=== PATIENT | female | born 1995 | race Caucasian/White ===

== ENCOUNTER 2022-01-04 22:46 | Emergency (ER) | payer SELFPAY ==
[~2022-01-04] VITALS: Ht 165.1 cm; Wt 65.8 kg
[2022-01-04 22:57] VITALS: BP 128/82
[2022-01-04] MEDS ORDERED: IBUPROFEN 600 MG TAB PO ONE (23:00)
[2022-01-04] MEDS ORDERED: NAPR-54 PO (23:49)
[2022-01-04 23:56] VITALS: BP 128/82
== END 2022-01-04 23:56 | disposition home or self-care (01) ==
LOC: MED 22:46
DX: S02.2XXA Fracture of nasal bones, initial encounter for closed fracture (principal); Z79.899 Other long term (current) drug therapy; W19.XXXA Unspecified fall, initial encounter; Y93.89 Activity, other specified; Y92.89 Other specified places as the place of occurrence of the external cause; Y99.8 Other external cause status
CPT/HCPCS: 70160; 99283

== ENCOUNTER 2024-02-02 15:09 | Emergency (ER) | payer SELFPAY ==
[~2024-02-02] VITALS: Ht 160 cm; Wt 73.2 kg
[~2024-02-02 15:09] MED LIST: NAPR-337 PO
[2024-02-02 15:29] VITALS: BP 134/83; PULSE 78; RESP 18; TEMP 98.6; O2SAT 97
--- NOTE | 2024-02-02 15:39 | NUR ---
PT AMB TO BED 6
[2024-02-02 15:50] VITALS: O2SAT 97
--- NOTE | 2024-02-02 15:50 | NUR ---
29YO FEMALE PT C/O INCREASED ABD BLOATING AND PAIN XTODAY. REPORTS INITIAL INTERMITTENT ONSETS [id number] W/ CONSTIPATION . STATES HX HEMORRIODS. DENIES N/V/D, CHEST PAIN, SOB OR RELIEF AFTER LAXATIVES. PT AAOX5, HOB POSITIONED PER COMFORT.CALL LIGHT WITHIN REACH. HX: DENIES NKA
[2024-02-02 16:09] LABS: BILIRUBIN,URINE NEGATIVE (NEGATIVE); BLOOD, URINE NEGATIVE (NEGATIVE); COLOR,URINE YELLOW (YELLOW); LEUKOCYTE ESTERASE ,URINE TRACE (NEGATIVE); NITRITE, URINE NEGATIVE (NEGATIVE); PROTEIN,URINE NEGATIVE (NEGATIVE); UGLUCOSE NEGATIVE (NEGATIVE); UROBILINOGEN,URINE 0.2 EU/dL (0.2 - 1)
[2024-02-02 16:10] LABS: APPEARANCE,URINE HAZY (CLEAR)
--- NOTE | 2024-02-02 16:18 | NUR ---
xray at bedside
[2024-02-02 16:20] LABS: RBC,URINE 0 /HPF (0-5); WBC,URINE 0-5 /HPF (0-5)
[2024-02-02 16:21] LABS: BACTERIA,URINE 1+ /HPF (None Seen); MUCUS,URINE 1+ /LPF (None Seen); SQUAMOUS EPITHELIAL CELL,UR 4-10 (MOD) /LPF (0-3 (FEW))
[2024-02-02] MEDS ORDERED: ACET500T99 PO ×2 (18:04→18:43)
[2024-02-02] MEDS ORDERED: CEPH-588 PO ×2 (18:04→18:43)
[2024-02-02] MEDS ORDERED: MIRABULK PO ×2 (18:04→18:43)
[2024-02-02 18:43] VITALS: BP 133/82; PULSE 77; RESP 16; TEMP 98.1; O2SAT 97
--- NOTE | 2024-02-02 18:43 | NUR ---
Patient discharged with v/s stable. Written and verbal after care instructions FOR ABD PAIN, UTI AND CONSTIPATION given and explained. Patient alert, oriented and verbalized understanding of instructions. Ambulatory with steady gait. All questions addressed prior to discharge. ID band removed. Patient advised to follow up with PMD. Rx of TYLENOL XTRA, KEFLEX AND MIRALAX given. Opportunity to ask questions provided and answered.
--- NOTE | 2024-02-02 18:51 | NUR ---
Chart checked and completed. The patient's care was reviewed and supervised by LARA KEE RN.
== END 2024-02-02 18:43 | disposition home or self-care (01) ==
LOC: MED 15:09
DX: K59.00 Constipation, unspecified (principal); N39.0 Urinary tract infection, site not specified; Z79.899 Other long term (current) drug therapy
CPT/HCPCS: 74018; 81001; 81025; 99284

== ENCOUNTER 2024-03-28 14:55 | Emergency (ER) | payer OTHER ==
[~2024-03-28] VITALS: Ht 165.1 cm; Wt 74.0 kg
[~2024-03-28 14:55] MED LIST changes: +ACET500T99 PO; +CEPH-588 PO; +MIRABULK PO
[2024-03-28 15:08] VITALS: BP 116/68; PULSE 83; RESP 18; TEMP 98; O2SAT 99
[2024-03-28] MEDS: LIDOCAINE MPF 1% 10 MG/ML VIAL INJ ONE (16:00)
[2024-03-28] MEDS: BACITRACIN OINT 500 UNITS/GM PKT TP ONE (16:01)
[2024-03-28] MEDS ORDERED: IBUP-2213 PO (16:28)
[2024-03-28] MEDS ORDERED: BACI-418 TP (16:28)
== END 2024-03-28 17:06 | disposition home or self-care (01) ==
LOC: MED 14:55
DX: L60.0 Ingrowing nail (principal); Z79.899 Other long term (current) drug therapy
CPT/HCPCS: 11730; 99284; J2003